=== PATIENT | female | born 1985 | race African-American/Black ===

== ENCOUNTER 2016-12-12 16:20 | Emergency (ER) | payer OTHER ==
[~2016-12-12] VITALS: Ht 180.3 cm; Wt 74.8 kg
[~2016-12-12 16:20] MED LIST: CIPRO 500MG TA500 MG PO; KEFLEX500 MG PO; MOTRIN800 MG PO; PERCOCET 325 MG1 TA2 PO; PYRIDIUM100 MG PO
[2016-12-12 16:27] VITALS: BP 129/84
--- NOTE | 2016-12-12 17:36 | ED UPPER/LOWER EXTREMITY COMPL ---
History of Present Illness General Chief Complaint: Laceration Procedure Stated Complaint: RT FOOT LAC/SAT Source: patient Exam Limitations: no limitations Vital Signs & Intake/Output Vital Signs & Intake/Output Vital Signs Date Time Temp Pulse Resp B/P Pulse O2 O2 Flow FiO2 Ox Delivery Rate 12/12 1627 97.1 88 16 129/84 96 Room Air ED Intake and Output 12/13 0000 12/12 1200 Intake Total Output Total Balance Patient 165 lb Weight Allergies Coded Allergies: NO KNOWN ALLERGIES (NKDA) (10/07/14) Reconcile Medications Cephalexin (Keflex) 500 MG CAP 1 TAB PO TID UTI Ciprofloxacin (Cipro) 500 MG TAB 1 TAB PO BID UTI Ibuprofen (Motrin) 800 MG TAB 1 TAB PO 4 TIMES/DAY PRN PAIN OXYCODONE HCL/ACETAMINOPHEN (Percocet 5-325 MG Tablet) 325 MG/5 MG TAB 1-2 TAB PO Q4-6 PRN PRN PAIN EIGHT PILLS... [id number] PHENAZOPYRIDINE HCL (Pyridium) 100 MG TAB 1 TAB PO TID DYSURIA Triage Note: STATES THAT SHE CUT HER R FOOT GREAT TOE ON MONDAY ON ESCALATOR. STATES THAT IT IS OOZING . Triage Nurses Notes Reviewed? yes Onset: Abrupt Duration: better Timing: recent history Severity: moderate Severity Numbers: 5 Method of Injury: laceration : No Patient currently breastfeeds: No HPI: Patient is a 30-year-old female with an unremarkable past medical history whose tetanus is up-to-date who presents to emergency room stating that on Monday 3 days ago patient was wearing flip-flops and going up an escalator or patient stepped and struck the distal aspect of the bottom of her toe to the corner of the metal desk later stair resulting in a laceration. Patient has been applying water to the region patient was concerned of infection. Bleeding was ceased that day. Patient has not been taking any medications for symptoms. Denies any DENIES ANY discharge fevers chills swelling erythema warmth to the region. Patient has been walking on the foot and toe with mild pain (UMESH SONI) Past History Travel History Traveled to [place] past 21 day No Medical History Any Pertinent Medical History? none Neurological: NONE EENT: NONE Cardiovascular: NONE Respiratory: NONE Gastrointestinal: NONE Hepatic: NONE Renal: NONE Musculoskeletal: NONE Psychiatric: NONE Endocrine: NONE Blood Disorders: NONE Cancer(s): NONE History of CDIFF: No Surgical History Surgical History: NONE Psychosocial History What is your primary language Mauritian Tobacco Use: Never used ETOH Use: denies use Illicit Drug Use: denies illicit drug use Family History Hx Contributory? No (UMESH SONI) Review of Systems Review of Systems Constitutional: Reports: no symptoms. EENTM: Reports: no symptoms. Respiratory: Reports: no symptoms. Cardiovascular: Reports: no symptoms. Gastrointestinal/Abdominal: Reports: no symptoms. Genitourinary: Reports: no symptoms. Musculoskeletal: Reports: see HPI. Skin: Reports: see HPI. Neurological/Psychological: Reports: no symptoms. Hematologic/Endocrine: Reports: see HPI. Immunological: Reports: no symptoms. All Other Systems: Reviewed and Negative (UMESH SONI) Physical Exam Physical Exam General Appearance: no apparent distress, alert, comfortable Neurologic/Tendon: normal sensation, normal motor functions Comments: Well-developed well-nourished no apparent distress. HEENT: Atraumatic, extraocular motion intact Neck: Supple, no lymphadenopathy Back: Nontender Respiratory: No respiratory distress Neuro: Alert and oriented x3 Psych: Mood affect normal, normal memory normal judgment. Diagram Feet Bottom 1) 2.5 cm superficial irregular laceration with 2 cm of the laceration well healing and the proximal 5 mm HAS MINIMAL GAP No erythema no warmth no discharge dermatomes intact Capillary refill less than 2 seconds (UMESH SONI) Progress Differential Diagnosis: arterial insufficiency, cellulitis, compartment syndrome , contusion, dislocation, DVT, fracture, gout, septic arthritis, sprain, tendon injury, FOREIGN BODY RETENTION Plan of Care: The laceration site looks well healing no signs of infection at this time I clean the area with peroxide and sterile water Xeroform and bandage was applied. Patient was strongly advised to return to emergency room if signs of infection incur and to follow-up with HER PRIMARY care doctor as instructed in discharge plan (UMESH SONI) Departure Departure Disposition: HOME OR SELF CARE Condition: Stable Clinical Impression Primary Impression: Laceration of toe of right foot Referrals: UNKNOWN (PCP/Family) Additional Instructions: As discussed please change the dressings once A DAY WITH THE BANDAGES AND XEROFORM that has been provided to the emergency room. If you note signs of infection redness, pain, swelling, discharge return to emergency room immediately. Follow-up with your primary care doctor on Monday for recheck of symptoms. Try to keep area dry and clean YOU can Departure Forms: Customer Survey General Discharge Information (UMESH SONI) PA/SUCTION DRUM DRIER OPERATOR Co-Sign Statement Statement: ED Attending supervision documentation- [] I saw and evaluated the patient. I have also reviewed all the pertinent lab results and diagnostic results. I agree with the findings and the plan of care as documented in the PA's/SUCTION DRUM DRIER OPERATOR's documentation. [X] I have reviewed the ED Record and agree with the PA's/SUCTION DRUM DRIER OPERATOR's documentation. [] Additions or exceptions (if any) to the PAs/SUCTION DRUM DRIER OPERATOR's note and plan are summarized below: [] (RY PRUITT,MELISSA)
== END 2016-12-12 17:47 ==
LOC: ERH 16:20
DX: S91.119A Laceration without foreign body of unspecified toe without damage to nail, initial encounter (principal); W45.8XXA Other foreign body or object entering through skin, initial encounter; Y93.89 Activity, other specified; Y92.9 Unspecified place or not applicable
CPT/HCPCS: 99282

== ENCOUNTER 2016-12-27 16:34 | Emergency (ER) | payer OTHER ==
--- NOTE | 2016-12-27 17:25 | ED GENERAL ADULT ---
History of Present Illness General Chief Complaint: General Adult Stated Complaint: PT RT FOOT 5TH TOE AND URIANTING A LOT Source: patient, old records Exam Limitations: no limitations Vital Signs & Intake/Output Vital Signs & Intake/Output Vital Signs Date Time Temp Pulse Resp B/P B/P Pulse O2 O2 Flow FiO2 Mean Ox Delivery Rate 12/27 1822 97.2 93 12 110/70 98 Room Air 12/27 1641 98.0 85 20 109/71 Allergies Coded Allergies: NO KNOWN ALLERGIES (NKDA) (10/07/14) Triage Note: PER PT ? SPRAINED RT 5TH TOE, PAINFUL ALSO NOTICED TODAY URINATING ALOT, LMP 11/26/16 Triage Nurses Notes Reviewed? yes : No Patient currently breastfeeds: No HPI: Patient is a 31 year old female presents complaining of right foot pain and urinary frequency. Patient stubbed her foot approximately 2 weeks ago. Pain and swelling since. Patient thought the symptoms would improve but have persisted. Pain is currently moderate, worsens with palpation. Patient has not taken any medication for her symptoms. Urinary frequency onset today. Denies dysuria, hematuria, abdominal pain, nausea vomiting. (ALECIA CHURCHILL,RINA) Reconcile Medications Cephalexin (Keflex) 500 MG CAP 1 TAB PO TID UTI Ciprofloxacin (Cipro) 500 MG TAB 1 TAB PO BID UTI Diclofenac Sodium 75 MG TABLET.DR 1 TAB PO BID PAIN/SWELLING Ibuprofen (Motrin) 800 MG TAB 1 TAB PO 4 TIMES/DAY PRN PAIN Meloxicam 15 MG TABLET 1 TAB PO DAILY PRN pain/swelling Nitrofurantoin Monohyd/M-Cryst (Macrobid 100 MG Capsule) 100 MG CAPSULE 1 CAP PO BID uti Nitrofurantoin Monohyd/M-Cryst (Macrobid 100 MG Capsule) 100 MG CAPSULE 1 CAP PO BID uti OXYCODONE HCL/ACETAMINOPHEN (Percocet 5-325 MG Tablet) 325 MG/5 MG TAB 1-2 TAB PO Q4-6 PRN PRN PAIN EIGHT PILLS... [id number] PHENAZOPYRIDINE HCL (Pyridium) 100 MG TAB 1 TAB PO TID DYSURIA (JAYRO GONZALEZ MD) Past History Travel History Traveled to [place] past 21 day No Medical History Any Pertinent Medical History? none Neurological: NONE EENT: NONE Cardiovascular: NONE Respiratory: NONE Gastrointestinal: NONE Hepatic: NONE Renal: NONE Musculoskeletal: NONE Psychiatric: NONE Endocrine: NONE Blood Disorders: NONE Cancer(s): NONE History of CDIFF: No Surgical History Surgical History: NONE Psychosocial History What is your primary language Icelandic Tobacco Use: Never used Family History Hx Contributory? No (RINA INFANTE) Review of Systems Review of Systems Constitutional: Denies: chills, fever. EENTM: Reports: no symptoms. Respiratory: Denies: cough, short of breath. Cardiovascular: Denies: chest pain. GI: Denies: abdominal pain, vomiting. Genitourinary: Reports: see HPI. Musculoskeletal: Reports: see HPI. Denies: back pain. Skin: Reports: no symptoms. Neurological/Psychological: Denies: numbness, paresthesia. Hematologic/Endocrine: Denies: bleeding. Immunologic/Allergic: Denies: splenectomy. (RINA INFANTE) Physical Exam Physical Exam General Appearance: well developed/nourished, alert, awake Head: atraumatic, normal appearance Eyes: Bilateral: normal appearance, PERRL, EOMI. Ears, Nose, Throat: hearing grossly normal Neck: normal inspection, supple, full range of motion Respiratory: no respiratory distress Gastrointestinal: soft, non-tender Back: normal inspection, normal range of motion, no cva tenderness Extremities: normal inspection, normal capillary refill, normal range of motion, no edema, tenderness over the distal 4th metatarsal and 4th toe with mild swelling Neurologic/Psych: no motor/sensory deficits, awake, alert, oriented x 3, normal mood/affect Skin: intact, normal color, warm/dry Core Measures ACS in differential dx? No CVA/TIA Diagnosis: No Severe Sepsis Present: No Septic Shock Present: No (RINA INFANTE) Progress Differential Diagnoses I considered the following diagnoses in my evaluation of the patient: Foot sprain, foot fracture, dislocation, Lisfranc injury, urinary tract infection, , pyelonephritis Plan of Care: Orders Procedure Date/time Status Add-on Test (ER Only) 12/27 1725 Active CULTURE,URINE 12/27 1645 Active URINE 12/27 1641 Complete URINALYSIS 12/27 1641 Complete Laboratory Tests 12/27/16 1645: Urine Color STRAW, Urine Clarity CLEAR, Urine pH 6.0, Ur Specific [place] <= 1.005, Urine Protein NEG, Urine Ketones NEG, Urine Nitrite NEG, Urine Bilirubin NEG, Urine Urobilinogen 0.2, Ur Leukocyte Esterase TRACE H, Ur Microscopic SEDIMENT EXAMINED, Urine RBC PACKD H, Urine WBC RARE, Ur Epithelial Cells FEW, Urine Hemoglobin NEG, Urine Glucose NEG, Urine Test NEGATIVE Microbiology 12/27 1645 URINE ROUT: Urine Culture - RECD Diagnostic Imaging: Viewed by Me: Radiology Read. Discussed w/RAD: Radiology Read. Radiology Impression: no acute abnormality, no fracture, no dislocation, no foreign body seen Initial ED EKG: none (RINA INFANTE) Departure Departure Disposition: HOME OR SELF CARE Condition: Stable Clinical Impression Primary Impression: Sprain of right foot Qualifiers: Encounter type: initial encounter Qualified Code: S93.601A - Unspecified sprain of right foot, initial encounter Secondary Impressions: Urinary tract infection Qualifiers: Urinary tract infection type: acute cystitis Referrals: ALICIA THOMPSON,TED [facility] D.O. (PCP/Family) Additional Instructions: Wear Emigdio wrap to her foot for support. Follow-up with Dr. Mcclelland (candy polisher) or your primary doctor if no improvement within 3-4 days. Return to the emergency department if he developed abdominal pain, fevers, chills, numbness in her foot, or worsening of symptoms. Departure Forms: Customer Survey General Discharge Information Prescriptions: Current Visit Scripts Diclofenac Sodium 1 TAB PO BID #15 TAB Nitrofurantoin Monohyd/M-Cryst (Macrobid 100 MG Capsule) 1 CAP PO BID #10 CAP Meloxicam 1 TAB PO DAILY PRN pain/swelling #10 TAB Nitrofurantoin Monohyd/M-Cryst (Macrobid 100 MG Capsule) 1 CAP PO BID #10 CAP (RINA INFANTE) PA/COLLEGE TUTOR Co-Sign Statement Statement: ED Attending supervision documentation- [] I saw and evaluated the patient. I have also reviewed all the pertinent lab results and diagnostic results. I agree with the findings and the plan of care as documented in the PA's/COLLEGE TUTOR's documentation. x I have reviewed the ED Record and agree with the PA's/COLLEGE TUTOR's documentation. [] Additions or exceptions (if any) to the PAs/COLLEGE TUTOR's note and plan are summarized below: [] (LISA PRUITT,JAYRO) Critical Care Note Critical Care Note Critical Care Time: non-applicable (RINA INFANTE)
--- NOTE | 2016-12-27 18:13 | RADIOLOGY REPORT ---
EXAMINATION: XR FOOT, RIGHT CLINICAL INFORMATION: Stubbed toes. Pain fourth toe 2 weeks ago. COMPARISON: None TECHNIQUE: AP, lateral, and oblique views of the right foot. FINDINGS: No fracture. No dislocation. Bone and joints are normal. IMPRESSION: Normal right foot. No fracture of fourth toe.
[2016-12-27 18:22] VITALS: BP 110/70
[2016-12-27] MEDS ORDERED: DICLOFENAC SODI75 M2 PO (18:26)
[2016-12-27] MEDS ORDERED: MACROBID 100 M100 MG PO ×2 (18:26→18:32)
[2016-12-27] MEDS ORDERED: MELOXICAM15 M1 PO (18:32)
== END 2016-12-27 18:33 ==
LOC: ERH 16:34
DX: S93.601A Unspecified sprain of right foot, initial encounter (principal); N39.0 Urinary tract infection, site not specified
CPT/HCPCS: 73630-RT; 81001; 81025; 87086